=== PATIENT | female | born 1990 | race Two or more races ===

== ENCOUNTER 2018-02-20 18:17 | Emergency (ER) | payer OTHER ==
[~2018-02-20] VITALS: Ht 162.6 cm; Wt 58.1 kg
--- NOTE | 2018-02-20 18:41 | Emergency Room Report ---
History of Present Illness General Chief Complaint: Multiple Trauma/Fall Source: Patient Present Illness HPI 27-year-old female patient presents to ER complaining of back and elbow pain status post one day. Reports that she was at work when she slipped and fell onto her buttock. States that she hit her right elbow she was pulling down on a table. Denies hitting her head or losing consciousness. Denies vomiting or vision changes. Denies radiation of pain down leg. Denies difficulty with walking. Denies loss of range of motion elbow. Denies other acute symptoms. Reports taken any medication for pain. Denies fever, chest pain, shortness breath, abdominal pain. Denies bowel or bladder incontinence. Denies history of back surgery or injury. Denies . Allergies: Coded Allergies: No Known Allergies (Unverified , 02/20/18) Patient History Past Medical History: see triage record Last Menstrual Period: 01/30/18 Reviewed Nursing Documentation: PMH: Agreed; PSxH: Agreed Nursing Documentation-PMH Past Medical History: No Stated History Review of Systems All Other Systems: negative except mentioned in HPI Physical Exam Vital Signs Date Time Temp Pulse Resp B/P (MAP) Pulse Ox O2 Delivery O2 Flow Rate FiO2 02/20/18 18:20 98.7 63 18 107/66 95 Room Air 98.8 Sp02 EP Interpretation: reviewed, normal General Appearance: well appearing, no apparent distress, alert, GCS 15, non- toxic Head: normocephalic, atraumatic Eyes: bilateral eye normal inspection, bilateral eye PERRL ENT: hearing grossly normal, normal pharynx, no angioedema, normal voice, uvula midline, moist mucus membranes Neck: full range of motion Respiratory: lungs clear, normal breath sounds, no rhonchi, no respiratory distress, no accessory muscle use, no wheezing, speaking full sentences Cardiovascular #1: regular rate, rhythm, no edema Cardiovascular #2: 2+ radial (R), 2+ radial (L) Gastrointestinal: non tender, soft, no mass, non-distended, no guarding, no rebound Musculoskeletal: back normal, digits/nails normal, gait/station normal, normal range of motion, other - no spinous process tenderness, no bony step-off; right upper extremity neurovascularly intact AIN, PA and, nerve intact as tested, no swelling of right elbow, no bony deformity, full ROM of elbow, tender - bilateral lumbosacral area Neurologic: alert, oriented x3, responsive, motor strength/tone normal, SLR negative, sensory intact, cerebellar normal, normal gait, speech normal Medical Decision Making PA Attestation Dr. Sawyer is my supervising Physician whom patient management has been discussed with. Diagnostic Impression: Primary Impression: Lumbosacral pain Additional Impression: Elbow pain, right ER Course Pt. presents to the ED c/o low back and right elbow pain. Ddx considered but are not limited to fracture, sprain, strain, contusion, dislocation. No erythema, no warmth to touch, no fever, nontoxic appearing, low suspicion for septic joint. Vital signs: are WNL, pt. is afebrile Ordered X-ray and pain medication. ER COURSE Provided with pain medication. An X-ray of the lumbar spine negative for acute disease per the preliminary reading. patient denied , informed radiologist to have patient sign paperwork that she is not . Does not require labs at this time. No urinary complaints, low suspicion for UTI. An x-ray of the right elbow negative for acute disease per the preliminary reading. physical exam no bony tenderness, no spinous process tenderness, full range of motion, no radiation of pain down back, likely muscle spasm causing low back pain symptoms. we'll provide muscle relaxants for patient at discharge, side effect drowsiness. Take Tylenol for pain symptoms. Does not require splint or crutches at this time. Patient able to ambulate independently without difficulty. Patient instructed on RICE method: rest, ice, compression, elevation. Patient instructed on rest, ice and heat. Patient instructed to be WBAT Workmen's Compensation paperwork completed. Patient okay for return to normal work. Patient states she feels fine and can return to normal activities. Followup with primary care provider. Discuss referral to ortho/pain management/ PT as needed. Discuss further imaging with MRI/CT as needed. DISCHARGE: -Rx provided for Tylenol for pain symptoms. -Rx provided for Methocarbamol. SE drowsiness, do not drink, drive, or operate heavy machinery while using. -Rx provided for lidocaine patches At this time pt. is stable for d/c to home. Patient is resting comfortably, in no acute distress, nontoxic appearing, talking without difficulty. Will provide printed patient care instructions, and any necessary prescriptions. Patient instructed to follow with primary care provider in 3 - 5 days and to request further follow-up as needed. Care plan and follow up instructions have been discussed with the patient prior to discharge. Take medications as directed. Patient questions asked and answered. Patient reports understanding and agreement to treatment plan. ER precautions given, patient instructed to return to ER immediately for any new or worsening of symptoms. - Please note that this Emergency Department Report was dictated using [employer] fixer technology software, occasionally this can lead to erroneous entry secondary to interpretation by the dictation equipment. Other X-Ray Diagnostic Results Other X-Ray Diagnostic Results #1: X-Ray ordered: lumbar spine # of Views/Limited Vs Complete: 3 View Indication: Pain EP Interpretation: Yes PA Xray: Interpretation reviewed, by supervising MD, and agrees with findings. Interpretation: no dislocation, no soft tissue swelling, no fractures Impression: No acute disease SRINI Scribe Jacinto Chauhan PA-C Other X-Ray Diagnostic Results #2: X-Ray ordered: right elbow # of Views/Limited Vs Complete: 3 View Indication: Pain EP Interpretation: Yes PA Xray: Interpretation reviewed, by supervising MD, and agrees with findings. Interpretation: no dislocation, no soft tissue swelling, no fractures, other - no posterior fat pad sign Impression: No acute disease PA Scribe Jacinto Chauhan PA-C Last Vital Signs Date Time Temp Pulse Resp B/P (MAP) Pulse Ox O2 Delivery O2 Flow Rate FiO2 02/20/18 18:20 98.7 63 18 107/66 95 Room Air 98.8 Disposition: HOME, SELF-CARE Condition: Stable Scripts Methocarbamol* (ROBAXIN*) 500 Mg Tablet 500 MG PO TID, #21 TAB 0 Refills Prov: Lamont Chauhan.A. 02/20/18 Lidocaine (Lidocaine) 1 Each Adh..patch 700 MG TP DAILY, #7 PATCH Prov: Lamont Chauhan P.A. 02/20/18 Acetaminophen* (TYLENOL EXTRA STRENGTH*) 500 Mg Tablet 500 MG ORAL Q8H PRN for Prn Headache/Temp > 101, #30 TAB 0 Refills Prov: Lamont Chauhan P.A. 02/20/18 Patient Instructions: Back Pain, Adult, [id number] Additional Instructions: Patient instructed to follow up with primary care provider and discuss further referral to orthopedics. Patient instructed on RICE method: rest, ice, compression, elevation. Patient instructed to WBAT. Take medications as directed. SE drowsiness, do not take prior to drinking, driving, or operating heavy machinery. Patient questions asked and answered. ER precautions given, patient instructed to return to ER immediately for any new or worsening of symptoms. Lamont Chauhan Feb 20, 2018 18:41
[2018-02-20] MEDS ORDERED: Methocarbamol 500mg tab ORAL ONE (18:45)
[2018-02-20] MEDS ORDERED: Acetaminophen 500mg (ES) tab ORAL ONE (18:45)
[2018-02-20 18:48] VITALS: BP 107/66
[2018-02-20] MEDS ORDERED: LIDOCAINE700 M1 TP (19:30)
[2018-02-20] MEDS ORDERED: ROBAXIN500 MG PO (19:30)
[2018-02-20] MEDS ORDERED: TYLENOL EXTRA500 MG ORAL (19:30)
[2018-02-20 19:46] VITALS: BP 107/66
--- NOTE | 2018-02-21 11:18 | Diagnostic Imaging Report ---
Indication: Pain Findings: 3 views of the right elbow were obtained. No acute fractures, malalignment, erosions or periostitis are identified. Bone mineralization is within normal limits. Soft tissues are unremarkable. Impression: Negative examination of the elbow.
--- NOTE | 2018-02-21 11:20 | Diagnostic Imaging Report ---
Indication: Back pain Comparison: None Findings: 3 views of the lumbar spine were obtained. Multilevel narrowing of intervertebral disks and associated endplate and facet osteophytes are present. No malalignment identified. No acute fracture definitely seen. Impression: Mild spondylosis. No acute injury appreciated.
== END 2018-02-20 19:46 | disposition home or self-care (01) ==
LOC: EMR 18:51
DX: M54.5 Low back pain (principal); M25.521 Pain in right elbow; M47.9 Spondylosis, unspecified
CPT/HCPCS: 72020; 99284